=== PATIENT | male | born 1955 | race Caucasian/White ===

== ENCOUNTER → 2021-11-28 11:33 | Outpatient (BNVA) | payer OTHER, SELFPAY | PROVIDERS: Visit Provider Urology | DX: N40.0 Benign prostatic hyperplasia without lower urinary tract symptoms (principal) ==

== ENCOUNTER → 2022-11-28 08:28 | Outpatient (BNVA) | payer OTHER, SELFPAY | PROVIDERS: PCP Internal Medicine; Visit Provider Urology | DX: R33.9 Retention of urine, unspecified (principal); N40.0 Benign prostatic hyperplasia without lower urinary tract symptoms | CPT/HCPCS: 51798 ==

== ENCOUNTER 2023-11-28 08:09 | Outpatient (AMB) | payer OTHER, SELFPAY ==
--- NOTE | 2023-11-28 08:26 | MHC.OFFVIS ---
Intake Intake Visit Reasons: 1Y PVR(Conf) Intake Note: Patient is Present for Follow Up Urology Medication: Terazosin, Finasteride Antibiotic Allergies: None Blood Thinners: None PVR: 0 Allergies No Known Allergies Allergy (Verified 11/28/23 08:33) Medication List - Last Reconciled 11/28/23 by Kunal Alarcon MD atorvastatin 80 mg PO DAILY azelastine intranasal betamethasone, augmented 0.05% topical finasteride 5 mg PO DAILY 90 days fluoxetine 20 mg PO DAILY meloxicam 7.5 mg PO DAILY omeprazole 20 mg PO DAILY terazosin 10 mg PO DAILY 90 days valsartan 160 mg PO DAILY valsartan 320 mg PO DAILY HPI HPI Comments History of Present Illness Details Ilir Greenwood is a very pleasant male. He is a patient of . He is seen in the office today for the following urologic conditions. - lower urinary tract symptoms Yearly review PVR low Monotherapy with finasteride retry Lower Urinary Tract Symptoms:? Current visit is for?further evaluation of, lower urinary tract symptoms, predominate obstructive symptoms ? Current treatment includes?medication, alpha kj Terazosin 10mg and finasteride 5 mg ? Prior treatments include?mid 1999' procedure, TUMT ? Prostate Symptom Score?Mild (0-8), Bother 3.? Symptoms include?incomplete emptying, weak stream, and are improving.? Results from testing include? uroflow was performed ?Yes 12/2014 ? with a voided volume of ?118 ? with a maximum flow rate (Q max) ?9.8 ? based on the [place] nomagram this represents the following percentile ?5 ? the following patterns were seen ?prolonged void time (> 20sec) ? renal/bladder us ?Yes ? date ?10/27/2018 ? PVR ?60 ? prostate size ?50 ? Prior Prostate Score?moderate.? PSA?04/02 1.1, 04/05 0.4.? Prostate volume?< 30 gm ? Testing at next visit will include?bladder scan.? [facility] Medical History Prostatism Vitamin D deficiency Anxiety Depression HTN (hypertension) Hyperlipidemia GERD (gastroesophageal reflux disease) Left inguinal hernia Penile hypospadias BPH (benign prostatic hyperplasia) Incomplete emptying of bladder Weak urinary stream Surgical History History of surgery Social History Patient Tobacco Use Status: Former Tobacco user Review of Systems Const Denies chills and Denies fever(s) Card Reports no additional complaints and Denies syncope Resp Denies cough GI Denies abdominal pain and Denies heartburn Reports as per HPI and Denies change in libido Neuro Denies syncope Psych Denies change in libido Endo Denies change in libido Physical Exam Const General: cooperative, healthy appearing, comfortable and no acute distress Orientation/consciousness: patient oriented x3 HEENT Face and sinus: Yes normal facial exam Mouth: moist mucous membranes Neck Neck: Yes normal visual inspection, Yes full ROM and Yes trachea midline Chest Chest palpation & inspection: normal inspection of the chest Resp Effort & Inspection: normal respiratory effort, able to speak in complete sentences and no respiratory distress GI Inspection: Yes normal to inspection Back/Spine/Pelvis Cervical Spine: normal cervical lordosis Thoracic/Lumbar Spine: thoracic and lumbar spine normal to inspection Skin General skin exam: no rashes or lesions noted Neuro General: patient oriented x3, gait normal, tone normal and moves all extremities Extrem General: Yes normal to inspection and Yes capillary refill normal Office Procedures Post Void Residual Post Residual Void Post Void Residual (PVR): 0 [id number] Void Residual by ultrasound Assessment & Plan Assessment & Plan (1) BPH (benign prostatic hyperplasia): Code(s): N40.0 - Benign prostatic hyperplasia without lower urinary tract symptoms (2) Weak urinary stream: Code(s): R39.12 - Poor urinary stream (3) Incomplete emptying of bladder: Code(s): R33.9 - Retention of urine, unspecified Plan Twelve month follow-up Orders: Orders AMB Post Void Residual by ultrasound Today R33.9 - Retention of urine, unspecified Prostate Specific Antigen 364 Days R39.12 - Poor urinary stream Patient Instructions: Imaging studies, laboratory and physical exam results were discussed and reviewed in detail. No major barriers to patient understanding were identified. An opportunity to ask questions regarding the treatment plan was provided. All questions were answered. The patient expressed understanding and agreement with the above treatment plan. The patient is aware they should contact our office by phone for worsening of their current condition or the appearance of new urologic symptoms. Compliance is encouraged with any medications and followup testing that is ordered. It is a privilege to participate in the urologic care of your patient. If you have any questions or concerns regarding treatment for the above conditions, or other urologic issues, please do not hesitate to contact me. The office telephone contact is [phone]. This note is constructed using voice recognition software. While every effort has been made to ensure accuracy database reporting consultant errors may have been included. Yours sincerely, Dr Kunal Alarcon MD, [facility] - Urology Providers of Expert, Compassionate Care for the Genitourinary System Coding Level of Care Code Est Pt Level 4 (05259) Diagnoses BPH (benign prostatic hyperplasia) N40.0 Weak urinary stream R39.12 Incomplete emptying of bladder R33.9 CPT Codes Post Residual Void - PVR CPT Code: 19407-[id number] Void Residual by ultrasound ([id number])
== END 2023-11-28 09:08 | disposition home or self-care (01) ==
PROVIDERS: Visit Provider Urology
DX: N40.0 Benign prostatic hyperplasia without lower urinary tract symptoms (principal); R39.12 Poor urinary stream; R33.9 Retention of urine, unspecified
CPT/HCPCS: 99213

== ENCOUNTER → 2023-11-28 08:09 | Outpatient (BNVA) | payer OTHER, SELFPAY | PROVIDERS: Visit Provider Urology | DX: N40.1 Benign prostatic hyperplasia with lower urinary tract symptoms (principal); R39.12 Poor urinary stream; R33.8 Other retention of urine | CPT/HCPCS: 51798 ==

== ENCOUNTER 2024-11-24 09:09 | Outpatient (REF) | payer OTHER, SELFPAY ==
[2024-11-24 10:50] LABS: Prostate Specific Antigen 1.89 ng/mL (<0.05-4.0)
== END 2024-11-24 09:10 | disposition home or self-care (01) ==
LOC: HO.HMGCLDS 09:09
PROVIDERS: PCP Internal Medicine; Visit Provider Urology
DX: R39.12 Poor urinary stream (principal); Z12.5 Encounter for screening for malignant neoplasm of prostate
CPT/HCPCS: 36415; 84153

== ENCOUNTER 2024-11-30 08:12 | Outpatient (AMB) | payer OTHER, SELFPAY ==
--- NOTE | 2024-11-30 08:28 | MHC.OFFVIS ---
Intake Visit Reasons: 1Y PSA/PVR(set) Intake Note: Patient is Present for 1y Follow Up psa/pvr Urology Medication: Terazosin, Finasteride Antibiotic Allergies: None Blood Thinners: None PVR: 0ml's Stranner Required: No Allergies No Known Allergies Allergy (Verified 11/30/24 08:31) HPI Comments Details: Ilir Greenwood is a very pleasant male. He is a patient of Dr Bedolla. He is seen in the office today for the following urologic conditions. - lower urinary tract symptoms Yearly follow-up PSA 1.9 PVR 0 Remains on finasteride Tried coming off terazosin but remained Mild weakness of stream in the morning but otherwise okay Lower Urinary Tract Symptoms:? Current visit is for?further evaluation of, lower urinary tract symptoms, predominate obstructive symptoms ? Current treatment includes?medication, alpha kj Terazosin 10mg and finasteride 5 mg ? Prior treatments include?mid 1999' procedure, TUMT ? Prostate Symptom Score?Mild (0-8), Bother 3.? Symptoms include?incomplete emptying, weak stream, and are improving.? Results from testing include? uroflow was performed ?Yes 12/2014 ? with a voided volume of ?118 ? with a maximum flow rate (Q max) ?9.8 ? based on the [place] nomagram this represents the following percentile ?5 ? the following patterns were seen ?prolonged void time (> 20sec) ? renal/bladder us ?Yes ? date ?10/27/2018 ? PVR ?60 ? prostate size ?50 ? Prior Prostate Score?moderate.? PSA?04/02 1.1, 04/05 0.4, 12/11 1.9 ? Prostate volume?< 30 gm ? Testing at next visit will include?bladder scan.? [facility] Medical History Prostatism Vitamin D deficiency Anxiety Depression HTN (hypertension) Hyperlipidemia GERD (gastroesophageal reflux disease) Left inguinal hernia Penile hypospadias BPH (benign prostatic hyperplasia) Incomplete emptying of bladder Weak urinary stream Surgical History History of surgery Social History Patient Tobacco Use Status: Former Tobacco user Review of Systems Const Denies chills and Denies fever(s) Card Reports no additional complaints and Denies syncope Resp Denies cough GI Denies abdominal pain and Denies heartburn Reports as per HPI and Denies change in libido Neuro Denies syncope Psych Denies change in libido Endo Denies change in libido Physical Exam Const General: cooperative, healthy appearing, comfortable and no acute distress Orientation/consciousness: patient oriented x3 HEENT Face and sinus: Yes normal facial exam Mouth: moist mucous membranes Neck Neck: Yes normal visual inspection, Yes full ROM and Yes trachea midline Chest Chest palpation & inspection: normal inspection of the chest Resp Effort & Inspection: normal respiratory effort, able to speak in complete sentences and no respiratory distress GI Inspection: Yes normal to inspection Back/Spine/Pelvis Cervical Spine: normal cervical lordosis Thoracic/Lumbar Spine: thoracic and lumbar spine normal to inspection Skin General skin exam: no rashes or lesions noted Neuro General: patient oriented x3, gait normal, tone normal and moves all extremities Extrem General: Yes normal to inspection and Yes capillary refill normal Assessment & Plan Assessment & Plan (1) Incomplete emptying of bladder: Code(s): R33.9 - Retention of urine, unspecified Category: Medical (2) BPH (benign prostatic hyperplasia): Code(s): N40.0 - Benign prostatic hyperplasia without lower urinary tract symptoms Category: Medical Plan 12 month follow-up PSA and PVR Patient Instructions: Imaging studies, laboratory and physical exam results were discussed and reviewed in detail. No major barriers to patient understanding were identified. An opportunity to ask questions regarding the treatment plan was provided. All questions were answered. The patient expressed understanding and agreement with the above treatment plan. The patient is aware they should contact our office by phone for worsening of their current condition or the appearance of new urologic symptoms. Compliance is encouraged with any medications and followup testing that is ordered. It is a privilege to participate in the urologic care of your patient. If you have any questions or concerns regarding treatment for the above conditions, or other urologic issues, please do not hesitate to contact me. The office telephone contact is [phone]. This note is constructed using voice recognition software. While every effort has been made to ensure accuracy quality assurance monitor chassis errors may have been included. Yours sincerely, Dr Kunal Alarcon MD, [facility] - Urology Providers of Expert, Compassionate Care for the Genitourinary System Coding Level of Care Code Est Pt Level 4 (59872) Diagnoses Incomplete emptying of bladder R33.9 BPH (benign prostatic hyperplasia) N40.0
== END 2024-11-30 08:58 | disposition home or self-care (01) ==
PROVIDERS: PCP Internal Medicine; Visit Provider Urology
DX: R33.9 Retention of urine, unspecified (principal); N40.0 Benign prostatic hyperplasia without lower urinary tract symptoms
CPT/HCPCS: 99214

== ENCOUNTER → 2024-11-30 08:12 | Outpatient (BNVA) | payer OTHER, SELFPAY | PROVIDERS: PCP Internal Medicine; Visit Provider Urology ==

== ENCOUNTER 2025-06-09 11:53 | Emergency (ER) | payer OTHER, SELFPAY ==
--- NOTE | ~2025-06-09 | XR_ITS ---
EXAMINATION: XR RIBS 3 VIEWS MINIMUM WITH CHEST RIGHT HISTORY: right sided rib pain s/p fall COMPARISON: There are no prior studies available for comparison. FINDINGS: A single PA view of the chest and 6 views of the right ribs are submitted. The lungs are expanded and clear. There is no pleural effusion, pneumothorax, or pulmonary vascular congestion. The heart is normal in size. The right ribs are intact. No fracture is seen. A screw is seen in the right glenoid. XR/XR ribs RT min 3V w CXR1V IMPRESSION: No evidence of fracture of the right ribs. Electronically signed by: Jason Patterson MD 06/09/2025 12:45 PM EDT
--- NOTE | ~2025-06-09 | CT_ITS ---
EXAMINATION: CT CERVICAL SPINE WITHOUT CONTRAST CLINICAL INFORMATION: Trauma, pain after falling COMPARISON: None available. TECHNIQUE: Axial imaging was performed from the base of the skull through T2 without IV contrast. Coronal and sagittal reformatted images were generated from the original axial data set. ALARA: The examination used one or more of the following radiation dose reduction techniques: Automated exposure control, iterative reconstruction, and/or adjustment of mA and/or KV. DLP: 602 mGY*cm FINDINGS: There are severe degenerative changes of both temporomandibular joints, greater on the left. There is no prevertebral soft tissue swelling. There is mild reversal cervical lordosis. Degenerative disc changes are most advanced at C4-5 and C5-6 where there is moderate to severe disc space narrowing with bridging and nonbridging endplate osteophytes. Facet arthropathy is most advanced on the left C2-3 and C3-4 where there is joint space, sclerosis, and degenerative cystic change with marginal osteophytes. No fracture line is identified. CT/CT cervical spine wo IV con IMPRESSION: No acute abnormality. Multilevel degenerative disc disease and facet arthropathy with reversal cervical lordosis. Electronically signed by: Td Chacon MD 06/09/2025 01:28 PM EDT
--- NOTE | ~2025-06-09 | XR_ITS ---
EXAMINATION: XR HAND, LEFT CLINICAL INFORMATION: trauma COMPARISON: None available. TECHNIQUE: PA, lateral, and oblique views of the left hand. FINDINGS: No fracture, dislocation, or suspicious bone lesion. No malalignment. Joint spaces appear preserved. Carpal bones intact and normally aligned. Soft tissues appear normal. XR/XR hand LT min 3V IMPRESSION: No acute bony abnormalities left hand. Electronically signed by: Vinicio Cortes MD 06/09/2025 12:45 PM EDT
--- NOTE | ~2025-06-09 | CT_ITS ---
EXAMINATION: CT HEAD WITHOUT CONTRAST CLINICAL INFORMATION: Fall with head strike. COMPARISON: None available. TECHNIQUE: Contiguous axial imaging was performed from the skull base to vertex without intravenous administration of contrast. This CT examination was performed using dose optimization techniques as appropriate, variously including the following: *Automated exposure control *Adjustment of mA and/or kV according to patient size (this includes techniques or standardized protocols for targeted exams where dose is matched to indication/reason for exam; i.e. extremities or head) *Use of iterative reconstruction technique FINDINGS: There is no evidence of intracranial hemorrhage or extra-axial fluid collection. There is no mass effect, or edema. No CT evidence of acute territorial infarct. Ventricles, sulci, and cisterns are normal in size and configuration for patient age. No hydrocephalus. No midline shift. Negative hyperdense MCA sign. Negative insular ribbon sign. Patchy periventricular and deep white matter hypoattenuation is consistent with mild small vessel ischemic changes. 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 Globes and orbital contents image normally. No extracranial soft tissue abnormalities. The paranasal sinuses, mastoid air cells, and tympanic cavities are normally aerated. No suspicious bony abnormalities. There are no acute fractures evident. End-stage degenerative arthrosis bilateral TM joints. CT/CT head/brain wo IV con IMPRESSION: 1. No acute intracranial abnormality. 2. Chronic abnormalities as described. Electronically signed by: Vinicio Cortes MD 06/09/2025 01:32 PM EDT
[2025-06-09 11:58] VITALS: BP 117/68; PULSE 75; RESP 18; TEMP 36.2; O2SAT 97; BMI 32.2
--- NOTE | 2025-06-09 11:59 | ED.FALL ---
HPI - Fall General Chief Complaint: Fall Stated Complaint: fell head and chest inj at work Time Seen by Provider: 06/09/25 12:09 Source: patient, RN notes reviewed and old records reviewed Mode of arrival: ambulatory Limitations: no limitations History of Present Illness ED Provider: Ramírez DEXTER Narrative: 69-year-old male presents for evaluation after a fall. The patient reports that he was standing in a pickup truck, trying to get out of the bed. He reports that he got 1 leg over the rail and then his other foot got stuck He fell approximately 4 ft to the ground. He landed on his right side and struck the right side of his head in the temporal region He denies losing consciousness. Denies any neck pain pain He complains of a mild right-sided headache, left hand pain and right-sided chest pain He is not anticoagulated Related Data Home Medications ?Medication ?Instructions ?Recorded ?Confirmed atorvastatin 80 mg tablet 80 mg PO DAILY 11/28/21 11/28/23 azelastine 137 mcg (0.1 %) nasal intranasal 11/28/21 11/28/23 spray betamethasone, augmented 0.05 % topical 11/28/21 11/28/23 topical gel fluoxetine 20 mg capsule 20 mg PO DAILY 11/28/21 11/28/23 meloxicam 7.5 mg tablet 7.5 mg PO DAILY 11/28/21 11/28/23 omeprazole 20 mg capsule,delayed 20 mg PO DAILY 11/28/21 11/28/23 release valsartan 160 mg tablet 160 mg PO DAILY 11/28/21 11/28/23 valsartan 320 mg tablet 320 mg PO DAILY 11/28/21 11/28/23 Previous Rx's ?Medication ?Instructions ?Recorded finasteride 5 mg tablet 5 mg PO DAILY 90 days #90 tabs 11/23/24 terazosin 10 mg capsule 10 mg PO DAILY 90 days #90 caps 11/30/24 Allergies Allergy/AdvReac Type Severity Reaction Status Date / Time No Known Allergies Allergy Verified 06/09/25 12:02 Review of Systems Constitutional: Constitutional: Denies body ache(s), Denies chills, Denies fever(s), Denies frequent falls and Reports headache(s) Eyes: Eyes: Denies blind spots and Denies blurry vision ENT: Denies dizziness, Denies dry mouth and Reports headache(s) Cardiovascular: Cardiovascular: Reports chest pain (right chest wall pain) and Denies dyspnea on exertion Respiratory: Respiratory: Denies cough and Denies dyspnea on exertion Gastrointestinal: Gastrointestinal: Denies abdominal pain, Denies nausea and Denies vomiting Musculoskeletal: Musculoskeletal: Denies back pain, Denies arthralgias and Denies joint swelling Neurologic: Denies dizziness, Denies frequent falls and Reports headache(s) [facility] Past Medical History Medical History Prostatism Vitamin D deficiency Anxiety Depression HTN (hypertension) Hyperlipidemia GERD (gastroesophageal reflux disease) Left inguinal hernia Penile hypospadias BPH (benign prostatic hyperplasia) Incomplete emptying of bladder Weak urinary stream Surgical History History of surgery Social History Social History Patient Tobacco Use Status: Former Tobacco user Smoked in Last 30 Days: No Substance Use Type: Marijuana Advance Directives: No Advance Directives Information Provided: Yes Do you have a plan to hurt others: No Plan Physical Exam Vital Signs: Vital Signs: Last Vital Signs Temp 97.1 F 06/09/25 11:58 Pulse 75 06/09/25 11:58 Resp 18 06/09/25 11:58 BP 117/68 06/09/25 11:58 Pulse Ox 97 06/09/25 11:58 BMI result Body Mass Index 32.2 Const: General: healthy appearing, comfortable, no acute distress, alert and awake Nutritional Appearance: well nourished Orientation/consciousness: patient oriented x3 HEENT: Other: There was a large abrasion with petechiae to the right temporal region. No deep wounds or lacerations. No step-offs or deformities over the right orbit, zygomatic arch. Head: Yes No palpable skull fracture present Throat: Yes posterior oropharynx normal Eyes: Eyelids: Yes eyelids normal Conjunctivae: conjunctivae normal Sclerae: sclerae normal Corneas: corneas normal Pupils: Equal, round and reactive pupils present EOM: EOMs intact bilaterally Neck: Neck: Yes full ROM Chest: Chest palpation & inspection: normal inspection of the chest and no crepitus Resp: Effort & Inspection: normal respiratory effort, able to speak in complete sentences and not labored Back/Spine/Pelvis: Other: No C-spine tenderness Skin: General skin exam: elasticity normal Neuro: General: patient oriented x3 Cranial nerves: Yes CN's II-XII intact bilaterally, Yes Equal, round and reactive pupils present and Yes Bilaterally intact EOM present Cognition (Neuro): normal cognition Extrem: Other: Abrasion to the ventral surface of the left wrist. There is no deep wounds or lacerations. Full range of motion with flexion-extension of the wrists bilaterally and all fingers of the hands bilaterally Course Course Course Narrative: This is an RME: Additional HPI, ROS, PE not included below will be deferred to primary provider. RME assessment and note performed by: Kimberly Longo PA-C This is a 36-euad-aol-male, with a hx of HTN, HLD, BPH, GERD, who presents to the ER for evaluation of fall. Reporting he accidentally tripped and fell off of a truck bed, landing onto his right side. No LOC. States that he got the wind knocked out of him . He is not on AC. No midline c spine ttp. Plan: CT head/neck, xr ribs Medical Decision Making Medical Decision Making MDM Narrative: 69-year-old male presents for evaluation after a fall. He tripped while attempting to get out of his pickup truck. He did strike his head, plan for CT scan of the brain and cervical spine. I have a very low suspicion for facial fracture and therefore a facial bone CT was not ordered. X-ray of the chest and right ribs was also ordered. I also ordered an x-ray of the left hand. Differential Diagnosis Differential Diagnoses: The differential diagnosis associated with the presentation includes Facial contusion Intracranial hemorrhage Calvarial fracture Cervical strain Cervical fracture Finger fracture Independent Interpretation I performed an independent interpretation of an: CT Scan Interpretation: No obvious intracranial hemorrhage Radiology Impression Discussion of test interpretation with radiology: I have reviewed the radiologist's reading. Radiologist Impression: FINDINGS: There are severe degenerative changes of both temporomandibular joints, greater on the left. There is no prevertebral soft tissue swelling. There is mild reversal cervical lordosis. Degenerative disc changes are most advanced at C4-5 and C5-6 where there is moderate to severe disc space narrowing with bridging and nonbridging endplate osteophytes. Facet arthropathy is most advanced on the left C2-3 and C3-4 where there is joint space, sclerosis, and degenerative cystic change with marginal osteophytes. No fracture line is identified. CT/CT cervical spine wo IV con IMPRESSION: No acute abnormality. Multilevel degenerative disc disease and facet arthropathy with reversal cervical lordosis. Electronically signed by: Td Chacon MD 06/09/2025 01:28 PM EDT FINDINGS: There is no evidence of intracranial hemorrhage or extra-axial fluid collection. There is no mass effect, or edema. No CT evidence of acute territorial infarct. Ventricles, sulci, and cisterns are normal in size and configuration for patient age. No hydrocephalus. No midline shift. Negative hyperdense MCA sign. Negative insular ribbon sign. Patchy periventricular and deep white matter hypoattenuation is consistent with mild small vessel ischemic changes. 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 Globes and orbital contents image normally. No extracranial soft tissue abnormalities. The paranasal sinuses, mastoid air cells, and tympanic cavities are normally aerated. No suspicious bony abnormalities. There are no acute fractures evident. End-stage degenerative arthrosis bilateral TM joints. CT/CT head/brain wo IV con IMPRESSION: 1. No acute intracranial abnormality. 2. Chronic abnormalities as described. Electronically signed by: Vinicio Cortes MD 06/09/2025 01:32 PM EDT FINDINGS: No fracture, dislocation, or suspicious bone lesion. No malalignment. Joint spaces appear preserved. Carpal bones intact and normally aligned. Soft tissues appear normal. XR/XR hand LT min 3V IMPRESSION: No acute bony abnormalities left hand. Electronically signed by: Vinicio Cortes MD 06/09/2025 12:45 PM EDT FINDINGS: A single PA view of the chest and 6 views of the right ribs are submitted. The lungs are expanded and clear. There is no pleural effusion, pneumothorax, or pulmonary vascular congestion. The heart is normal in size. The right ribs are intact. No fracture is seen. A screw is seen in the right glenoid. XR/XR ribs RT min 3V w CXR1V IMPRESSION: No evidence of fracture of the right ribs. Electronically signed by: Jason Patterson MD 06/09/2025 12:45 PM EDT RP Tests considered The following testing was considered but not selected: Consider CT facial bones Prescription Management I considered prescription management with: Pain Medication (Patient declined analgesia) Discharge Plan Discharge Clinical Impression: Contusion of face Patient Disposition: Home, Self-Care Instructions: Facial Contusion (ED) Additional Instructions: You had a CT scan of your brain, cervical spine, x-rays of the right-sided ribs, chest and left hand. None of these images showed any significant traumatic injury. It is possible that you have a nondisplaced rib fracture that was not seen on x-ray. Use ibuprofen/Tylenol for pain Follow-up with your primary doctor, return for new or worsening symptoms Apply ice to the swollen areas Prescriptions: No Action finasteride 5 mg tablet 5 mg PO DAILY 90 Days Qty: 90 3RF terazosin 10 mg capsule 10 mg PO DAILY 90 Days Qty: 90 2RF atorvastatin 80 mg tablet 80 mg PO DAILY valsartan 320 mg tablet 320 mg PO DAILY meloxicam 7.5 mg tablet 7.5 mg PO DAILY azelastine 137 mcg (0.1 %) aerosol,spray intranasal betamethasone, augmented 0.05 % gel topical omeprazole 20 mg capsule,delayed release(DR/EC) 20 mg PO DAILY valsartan 160 mg tablet 160 mg PO DAILY fluoxetine 20 mg capsule 20 mg PO DAILY Stand Alone Forms: Work/School Release Print Language: Pakistani
--- NOTE | 2025-06-09 12:28 | PC.NURSE ---
Addendum entered by Selina Hernandez RN 06/09/25 12:28: Patient presents from home after attempting to climb over the back of his truck and foot getting caught, causing him to fall on his right side striking the right side of his head. Denies any LOC, or thinners. Alert and oriented. Some petechiae noted to right side of his forehead. Respirations even and non-labored. Abdomen large, distended, non-tender with positive bowel sounds. Radiological exams ordered. Original Note: Medical History Prostatism Vitamin D deficiency Anxiety Depression HTN (hypertension) Hyperlipidemia GERD (gastroesophageal reflux disease) Left inguinal hernia Penile hypospadias BPH (benign prostatic hyperplasia) Incomplete emptying of bladder Weak urinary strea
--- OUTSIDE RECORDS SUMMARY | 2025-06-09 13:00 | XMS_ITS | Clinical Summary ---
Author Organization [facility] Address [address] [place] [address] Phone Care Team Providers Care Planer Off Bearer Name Role Phone Duy Bedolla MD Primary Care Provider [phone] Allergies Active Allergy Reactions Criticality Noted Date Comments Other 03/15/2024 Seasonal Medications acetaminophen/d extromethorphan (ACETAMINOPHEN- DM ORAL) Take by mouth. Active meloxicam (MOBIC) 15 mg tablet Take 1 tablet (15 mg total) by mouth daily. Active atorvastatin (LIPITOR) 20 mg tablet Take 1 tablet (20 mg total) by mouth daily. Active finasteride (PROSCAR) 5 mg tablet Take 1 tablet (5 mg total) by mouth daily. Active FLUoxetine (PROzac) 20 mg capsule Take 1 capsule (20 mg total) by mouth daily. Active omeprazole (PriLOSEC) [address] capsule Take 1 capsule (20 mg total) by mouth daily. Active terazosin (HYTRIN) 10 mg capsule Take 1 capsule (10 mg total) by mouth every night at bedtime. Active valsartan (DIOVAN) 320 mg tablet Take 1 tablet (320 mg total) by mouth daily. 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) from Last 3 Months Immunizations Name Administration Dates Next Due Arteris SARS-CoV-2 COVID-19, mRNA, LNP-S, preservative free 02/17/2021,01/27/2021 Surgical History Surgery Date Site/Laterality Comments CHOLECYSTECTOMY PROCEDURE:CHOLECYSTECTOMY SHOULDER SURGERY PROCEDURE:SHOULDER SURGERY FEMUR SURGERY PROCEDURE:FEMUR SURGERY Family History Medical History Relation Name Comments Cancer Father Relation Name Status Comments Father Social History Tobacco Use Types Packs/Day Years Used Date Smoking Tobacco: Former Cigarettes Smokeless Tobacco: Never Tobacco Cessation:Counseling Given: Not Answered Alcohol Use Standard Drinks/Week Comments Not Currently 0 (1 standard drink = 0.6 oz pur e alcohol) Sex and Gender Information Value Date Recorded Sex Assigned at Not on file Legal Sex Male 4:54 PM EDT Gender Identity Not on file Sexual Orientation Not on file Obstetrics History Last Filed Vital Signs Vital Sign Reading Time Taken Comments Blood Pressure 146/60 04/07/2025 8:49 AM EDT Pulse 73 04/07/2025 8:49 AM EDT Temperature 36.6 C (97.9 F) 04/07/2025 8:49 AM EDT Respiratory Rate - - Oxygen Saturation 98% 04/07/2025 8:49 AM EDT Inhaled Oxygen Concentration - - Weight 97.5 kg (215 lb) 04/07/2025 8:49 AM EDT Height 174 cm (5' 8.5 ) 04/07/2025 8:49 AM EDT Body Mass Index 32.22 04/07/2025 8:49 AM EDT Plan of Treatment Upcoming Encounters Date Type Department Care Team (Late st Contact Info) Description 10/17/2025 9:00 AM EST Office Visit [facility] Hematology Oncology [address] [place] [id number] Cherie Biswas, DO [address] [place] [address] Health Maintenance Due Date Last Done Comments Pneumococcal Vaccine: 50+ Years (1 of 1 - PCV) 2004 Zoster Vaccines (2 of 2) 02/05/2024 12/11/2023 Abdominal Aortic Aneurysm (AAA) Screen 06/15/2024 Cholesterol Screening (Lipid Panel) 06/15/2024 Colorectal Cancer Screening: Colonoscopy 06/15/2024 Falls Risk Assessment 06/15/2024 Hepatitis C Screening 06/15/2024 Social Influencers of Health Screening 06/15/2024 Depression Screening 11/17/2024 COVID-19 Vaccine ( season) 2025 07/30/2024, 08/20/2023, 08/14/2022, Additional history exists Influenza Vaccine (#1) 2025 , 08/20/2023, 08/14/2022, Additional history exists RSV Immunization Adult Patients (1 - 1-dose 75+ series) 2029 DTaP,Tdap,and Td Vaccines (3 - Td or Tdap) 05/01/2034 05/01/2024, 06/22/2019 HIB Vaccines Aged Out No longer eligi ble based on patient's age to complete this topic HPV Vaccines Aged Out No longer eligi ble based on patient's age to complete this topic Hepatitis A Vaccines Aged Out No long er eligible based on patient's age to complete this topic Hepatitis B Vaccines Aged Out No long er eligible based on patient's age to complete this topic IPV Vaccines Aged Out No longer eligi ble based on patient's age to complete this topic MMR Vaccines Aged Out No longer eligi ble based on patient's age to complete this topic Meningococcal ACWY Vaccine Aged Out N o longer eligible based on patient's age to complete this topic Meningococcal B Vaccine Aged Out No l onger eligible based on patient's age to complete this topic RSV Immunization Patients Under 20 months Aged Out No longer eligible based on patient's age to complete this topic Varicella Vaccines Aged Out No longer eligible based on patient's age to complete this topic Procedures Procedure Name Priority Date/Time Associated Diagnosis Comments CBC WITH AUTO DIFFERENTIAL Routine 04/07/2025 9:29 AM EDT Hemochromatosis associated with compound heterozygous mutation in HFE gene (CMS/HCC V24) FERRITIN Routine 04/07/2025 9:29 AM EDT Hemochromatosis associated with compound heterozygous mutation in HFE gene (CMS/HCC V24) IRON AND TIBC Routine 04/07/2025 9:29 AM EDT Hemochromatosis associated with compound heterozygous mutation in HFE gene (CMS/HCC V24) CBC AND DIFFERENTIAL Routine 04/07/2025 9:29 AM EDT Hemochromatosis associated with compound heterozygous mutation in HFE gene (CMS/HCC V24) from Last 3 Months Results * (ABNORMAL) CBC auto differential (04/07/2025 9:29 AM EDT) WBC 5.8 4.8 - 10.8 K/mcL LAB HEMETOLOGY METHOD 04/07/2025 1:38 PM [facility] RBC 4.10(L) 4.50 - 5.50 M/mcL LAB HEMETOLOGY METHOD 04/07/2025 1:38 PM [facility] Hemoglobin 14.0 13.5 - 17.5 g/dL LAB HEMETOLOGY METHOD 04/07/2025 1:38 PM [facility] Hematocrit 39.8(L) 42.0 - 54.0 % LAB HEMETOLOGY METHOD 04/07/2025 1:38 PM [facility] MCV 96.6 79.0 - 98.0 FL LAB HEMETOLOGY METHOD 04/07/2025 1:38 PM [facility] MCH 34.0(H) 27.0 - 32.0 pcg LAB HEMETOLOGY METHOD 04/07/2025 1:38 PM [facility] MCHC 35.2 32.0 - 37.0 g/dL LAB HEMETOLOGY METHOD 04/07/2025 1:38 PM [facility] RDW 13.3 11.0 - 15.0 % LAB HEMETOLOGY METHOD 04/07/2025 1:38 PM [facility] Platelets 151 130 - 400 K/mcL LAB HEMETOLOGY METHOD 04/07/2025 1:38 PM [facility] MPV 10.0 7.0 - 11.0 FL LAB HEMETOLOGY METHOD 04/07/2025 1:38 PM EDT [facility] NRBC 0.0 <1.0 % LAB HEMETOLOGY METHOD 04/07/2025 1:38 PM [facility] NRBC Absolute 0.00 <0.10 K/mcL LAB HEMETOLOGY METHOD 04/07/2025 1:38 PM [facility] Neutrophils Relative 61.4 % LAB HEMETOLOGY METHOD 04/07/2025 1:38 PM [facility] Lymphocytes Relative 23.5 % LAB HEMETOLOGY METHOD 04/07/2025 1:38 PM [facility] Monocytes Relative 9.1 % LAB HEMETOLOGY METHOD 04/07/2025 1:38 PM [facility] Eosinophils Relative 5.0 % LAB HEMETOLOGY METHOD 04/07/2025 1:38 PM [facility] Basophils Relative 0.3 % LAB HEMETOLOGY METHOD 04/07/2025 1:38 PM [facility] Immature Granulocytes Relative 0.7 % LAB HEMETOLOGY METHOD 04/07/2025 1:38 PM [facility] Neutrophils Absolute 3.59 1.50 - 7.00 K/mcL LAB HEMETOLOGY METHOD 04/07/2025 1:38 PM [facility] Lymphocytes Absolute 1.37 1.00 - 5.00 K/mcL LAB HEMETOLOGY METHOD 04/07/2025 1:38 PM [facility] Monocytes Absolute 0.53 0.20 - 1.00 K/mcL LAB HEMETOLOGY METHOD 04/07/2025 1:38 PM [facility] Eosinophils Absolute 0.29 0.00 - 0.50 K/mcL LAB HEMETOLOGY METHOD 04/07/2025 1:38 PM [facility] Basophils Absolute 0.02 0.00 - 0.20 K/[facility] LAB HEMETOLOGY METHOD 04/07/2025 1:38 PM EDT [facility] Immature Granulocytes Absolute 0.04(H) 0.00 - 0.03 K/[facility] LAB HEMETOLOGY METHOD 04/07/2025 1:38 PM EDT [facility] Blood Venous blood specimen / Unknown Venipuncture / Unknown 04/07/2025 9:29 AM EDT 04/07/2025 1:00 PM EDT Cherie Biswas DO LAB BLOOD ORDERABLES Final Result [facility] [address] [place] [address], [place] [phone] * (ABNORMAL) Iron and TIBC (04/07/2025 9:29 AM EDT) Iron 69 50 - 160 mcg/dL LAB CHEMISTRY METHOD 04/07/2025 2:45 PM EDT [facility] TIBC 241(L) 250 - 450 mcg/dL LAB CHEMISTRY METHOD 04/07/2025 2:45 PM EDT [facility] Iron Saturation 29 20 - 50 % LAB CHEMISTRY METHOD 04/07/2025 2:45 PM EDT [facility] Blood Venous blood specimen / Unknown Venipuncture / Unknown 04/07/2025 9:29 AM EDT 04/07/2025 12:59 PM EDT Cherie Biswas DO LAB BLOOD ORDERABLES Final Result [facility] [address] [place] [address], [place] [phone] * Ferritin (04/07/2025 9:29 AM EDT) Ferritin 108 26 - 388 ng/mL LAB CHEMISTRY METHOD 04/07/2025 2:45 PM EDT [facility] Blood Venous blood specimen / Unknown Venipuncture / Unknown 04/07/2025 9:29 AM EDT 04/07/2025 12:59 PM EDT us Cherie Maloneuliffe DO LAB BLOOD ORDERABLES Final Result [facility] [address] [place] [address], from Last 3 Months Insurance MEDICARE [facility] Care Teams Planer Off Bearer Relationship Specialty Start Date End Date Duy Bedolla MD [address] [place] [address] PCP - General 02/04/24
--- OUTSIDE RECORDS SUMMARY | 2025-06-09 13:00 | XMS_ITS | Data Portability ---
Author Organization [place] - [facility], Allergy Address [address] [place] [id number] Care Team Providers Care Graduate Studies Dean Name Role Phone ROSALINA CORONEL Primary Care Provider Assessment Encounter Date Assessment Date Assessment LastModified by Organization Details LastModified Time 05/18/2025 05/18/2025 1. Deviated Nasa l Septum The patient has a previous history of deviated septum surgery. Evaluation focused on current nasal contour and airflow efficiency. 2. Allergic Rhinitis The patient reports chronic use of Claritin for symptom management. Future exploration into additional nasal treatments considered as patient reports ongoing nasal drip and congestion. 3. Chronic Rhinosinusitis Suggest imaging with a CAT scan to confirm sinus condition and rule out chronic sinus infection or inflammation as an cause for symptoms. No significant sinus disease. Consider trial of Sinus Structural Drafter or Sinus Buster 4. Obstructive Sleep Apnea The patient adheres well to CPAP therapy, though further assessment of CPAP settings at a sleep lab may be necessary due to continuing snoring issues. Procedure Documentation: - Examination of the nasal and oropharyngeal area with attention to potential structural or inflammatory changes. [email or web address] Not available 05/18/2025 10:39:26 Plan of Treatment Reminders Order Date Submit Date Provider Last Modified By Organization Details Last Modified Time Details Appointments None recorded . Lab None recorded . Referral None recorded . Procedures None recorded . Surgeries None recorded . Imaging CT, sinuses, w/o contrast 2024 [facility], [address] [place] [address], [place], [address], 10:59:31 Medication Orders None recorded . Patient TargetsNo targets recorded. Patient Instructions Encounter Date Encounter Id Patient Instructions Last Modified By Organization Details Last Modified Time 05/18/2025 [id number] Please note: Parts of this encounter note have been generated by AI based on audio conversation. Patient consent was required prior to utilizing this technology. Content review was required prior to finalizing the note. colton Not available 05/18/2025 10:05:19 Reason for Referral None Reported. Results Created Date Observation Date Name Description Value Unit Range Abnormal Flag Note LastModifiedBy Organization Detail LastModifiedTime 05/18/[address], sinus es, w/o contr ast No observ ation record ed. colton [facility] Of [address], [id number], 05/18/2025 10:40:20 05/18/20 25 audio gram No observ ation record ed. BARCODE Not Available 2024 17:06:39 05/31/20 25 05/18/2025 CT, sinus es, w/o contr ast No observ ation record ed. [facility] [address], [address], 06/08/2025 14:24:39 Result Notes None recorded. Problems Name Problem SNOMED Code Status Onset Date Resolution Date Notes Provider Name and Address Organization Details Recorded Time Pain of temporoma ndibular joint 05691476 Active 2015 Arthralgi a of temporoma ndibular joint; Note: Date Diagnosed : 11/28/2015 5:15 PM (M26.62) Not Available [facility] 4 02:15:27 Otalgia of right ear 8831836155 Active 2015 Otalgia, right ear; Note: Date Diagnosed : 11/28/2015 4:25 PM (H92.01) Not Available [facility] 4 02:16:11 Obesity 347658008 Active 2015 Other obesity; Note: Date Diagnosed : 02/14/2016 4:12 PM (E66.8) Not Available [facility] 4 02:14:09 Acute upper respirato ry infection 57138612 Active 2015 Acute upper respirato ry infection , unspecifi ed; Note: Date Diagnosed : 6 3:28 PM (J06.9) Not Available [facility] 4 02:14:57 Obstructi ve sleep apnea syndrome 64409164 Active 2016 LANDRY; Note: Date Diagnosed : 07/26/2015 3:10 PM (327.23) ; Start Date : 5 Obstruc tive sleep apnea (adult) (pediatri c); Note: Date Diagnosed : 02/26/2017 9:10 AM (G47.33) SVEN HILL MD [address] [place] [address], [facility], [place], [address] , [facility] 5 10:00:17 Sensorine ural hearing loss of bilateral ears 383864083 Active 2017 Sensorine ural hearing loss, bilateral ; Note: Date Diagnosed : 04/20/2018 3:18 PM (H90.3) Not Available [facility] 4 02:13:00 Allergic rhinitis 91698894 Active 2017 Allergic rhinitis: Due to other allergen; Note: Date Diagnosed : 08/13/2018 4:35 PM (477.8) Allergi c rhinitis: Due to other allergen; Note: Date Diagnosed : 4 4:29 PM (477.8) ; Start Date : 4 Allergi c rhinitis: Due to other allergen; Note: Date Diagnosed : 08/25/2014 4:29 PM (477.8) ; Start Date : 4 Allergi c rhinitis: Due to other allergen; Note: Date Diagnosed : 08/18/2014 4:33 PM (477.8) ; Start Date : 4 Other allergic rhinitis; Note: Date Diagnosed : 02/14/2016 4:06 PM (J30.89) ; Start Date : 6 Jessicanni al allergic rhinitis; Note: Date Diagnosed : 05/25/2015 3:51 PM (J30.89) [mapped from ICD9 code: 477.8] ; Start Date : 5 Not Available [facility] 4 02:15:41 Chronic rhinitis 71056833 Active 2017 Chronic rhinitis; Note: Date Diagnosed : 10/19/2018 4:20 PM (J31.0) SVEN HILL MD [address] [facility] [address], [place], [address] , [facility] - [facility] 5 09:59:48 Abnormal auditory perceptio n 91659024 Active 2024 PARISA DAVIS, AUD [address] [facility],[place] [address], [place], [address] , [facility] 5 09:46:48 Problem Notes None recorded. Procedures Surgical History Date Name Laterality Status Provider Name and Address Organization Details Recorded Time 05/18/20 25 Comp Audio with Tymps - 00273 & 34067 completed PARISA DAVIS [facility] [address] [facility],[place] [address], [place], [address], [facility] 05/18/2025 09:46:27 05/18/20 25 Fiberoptic Laryngoscopy (Comprehensive) completed SVEN MCINTYRE MD [address] [facility],[place] [address], [place], [address], [facility] 05/18/2025 10:05:17 Imaging Results None recorded. Procedure Notes None recorded. Medical Equipment None Reported. Medications Name Sig Start Date Stop Date Status Note LastModified by Organization Details LastModified Time Prescript ion - Prior Authoriza tion Request active Script Copy/Kati or Auth^Scr ipt Copy/Kati or Auth_202 [id number] Not Available Not Available Not Available amoxicill in 500 mg capsule TAKE 1 CAPSULE BY MOUTH THREE TIMES A DAY 05/18 completed Not Available Not Available Not Available terazosin 5 mg capsule 05/18 completed Medicati on ID: [id number] D uration Value: 90 Brand Name: terazosi n Send Method: E-Prescr ibed Sub s Allowed: subs OK Medic ationGen ericName : terazosi n Not Available Not Available Not Available clotrimaz ole 10 mg tushar 1 tushar in mouth 05/18 completed Medicati on ID: [id number] Du ration Value: 7 Prescri bed By Name: Vikram Kidd nd Name: jaylene zolgary Sen d Method: E-Prescr ibed Sub s Allowed: subs OK Medic ationGen ericName : clotrima zole Not Available Not Available Not Available atorvasta tin 80 mg tablet 2013 active Medicati on ID: [id number] Du ration Value: 90 Brand Name: atorvast atin Sen d Method: E-Prescr ibed Sub s Allowed: subs OK Medic ationGen ericName : atorvast atin Not Available Not Available Not Available ibuprofen 800 mg tablet 05/18 completed Medicati on ID: [id number] B rand Name: ibuprofe n Send Method: E-Prescr ibed Sub s Allowed: subs OK Medic ationGen ericName : ibuprofe n Not Available Not Available Not Available meloxicam 15 mg tablet TAKE 1 TABLET BY MOUTH EVERY DAY active Not Available Not Available No t Available prednison e 5 mg tablet 01/01 completed Medicati on ID: [id number] D uration Value: 14 Reason: () Brand Name: predniso ne Send Method: E-Prescr ibed Sub s Allowed: subs OK Medic ationGen ericName : predniso ne Not Available Not Available Not Available naproxen 250 mg tablet 09/25 completed Medicati on ID: [id number] R fatimah: () Brand Name: naproxen Send Method: E-Prescr ibed Sub s Allowed: subs OK Medic ationGen ericName : naproxen Not Available Not Available Not Available acetamino phen 300 mg-codein e 15 mg tablet TAKE 1 TABLET BY MOUTH EVERY 6 HOURS NEEDED 05/18 completed Not Available Not Available Not Available triamcino lone acetonide 0.1 % topical cream APPLY TWICE A DAY TO AFFECTED AREAS ON HANDS FOR 1-2 WEEKS AT A TIME.NOT ON FACE/BOD Y FOLDS. 05/18 completed Not Available Not Available Not Available oxycodone -acetamin ophen 5 mg-325 mg tablet TAKE 1 TABLET BY MOUTH EVERY 6 HOURS NEEDED 05/18 completed Not Available Not Available Not Available citalopra m 20 mg tablet 05/18 completed Medicati on ID: [id number] Du ration Value: 90 Brand Name: citalopr am Send Method: E-Prescr ibed Sub s Allowed: subs OK Medic ationGen ericName : citalopr am Not Available Not Available Not Available tamsulosi n 0.4 mg capsule 05/08 completed Medicati on ID: [id number] D uration Value: 14 Reason: () Brand Name: tamsulos in Send Method: E-Prescr ibed Sub s Allowed: subs OK Medic ationGen ericName : tamsulos in Not Available Not Available Not Available valsartan 320 mg tablet Take 1 tablet every day by oral route. active Not Available Not Available No t Available omeprazol e 20 mg capsule,d elayed release 2013 [place]ati [place] ID: [id number] Du ration Value: 90 Brand Name: omeprazo le Send Method: E-Prescr ibed Sub s Allowed: subs OK Medic ationGen ericName : omeprazo le Not Available Not Available Not Available Tylenol 325 mg tablet 01/01 completed Medicati on ID: [id number] R fatimah: () Brand Name: Tylenol Send Method: E-Prescr ibed Sub s Allowed: subs OK Medic ationGen ericName : Tylenol Not Available Not Available Not Available zinc 50 mg tablet 05/14 completed Medicati on ID: [id number] B rand Name: zinc Sen d Method: E-Prescr ibed Sub s Allowed: subs OK Medic ationGen ericName : zinc Not Available Not Available Not Available azelastin e 137 mcg (0.1 %) nasal spray Inhale 2 spray into both nostrils twice a day as directed 05/14 completed Medicati on ID: [id number] D uration Value: 90 Prescri bed By Name: Vikram Kidd nd Name: azelasti ne Send Method: E-Prescr ibed Sub s Allowed: subs OK Medic ationGen ericName : azelasti ne Not Available Not Available Not Available fluoxetin e 20 mg capsule TAKE 1 CAPSULE BY MOUTH EVERY EVENING active Not Available Not Available No t Available fluticaso ne propionat e 50 mcg/actua tion nasal spray,ryan pension 1 puff into both nostrils 05/14 completed Medicati on ID: [id number] D uration Value: 30 Prescri bed By Name: Sven velázquez M.D. Bra jeremy Name: fluticas one propiona te Send Method: E-Prescr ibed Sub s Allowed: subs OK Medic ationGen ericName : fluticas one propiona te Not Available Not Available Not Available terazosin 10 mg capsule TAKE 1 CAPSULE BY MOUTH EVERY DAY FOR 90 DAYS active Not Available Not Available No t Available ipratropi um bromide 21 mcg (0.03 %) nasal spray USE 2 INTRANAS L SPRAYS THREE TIMES A DAY DIRECTED active Not Available Not Available No t Available finasteri de 5 mg tablet Take 1 tablet every day by oral route. active Not Available Not Available No t Available Acidophil us capsule 05/14 completed Medicati on ID: [id number] B rand Name: Acidophi justice Send Method: E-Prescr ibed Sub s Allowed: subs OK Medic ationGen ericName : Acidophi justice Not Available Not Available Not Available Calcium-5 00 500 mg (as calcium carbonate 1,250 mg) tablet 2014 active Medicati on ID: [id number] Br and Name: Calcium 500 Send Method: E-Prescr ibed Sub s Allowed: subs OK Medic ationGen ericName : Calcium 500 Not Available Not Available Not Available Vitamin D3 25 mcg (1,000 unit) capsule 05/14 completed Medicati on ID: [id number] Br and Name: Vitamin D3 Send Method: E-Prescr ibed Sub s Allowed: subs OK Medic ationGen ericName : Vitamin D3 Not Available Not Available Not Available multivita min active Not Available Not Available Not Available Zyrtec 10 mg capsule 02/14 completed Medicati on ID: [id number] Br and Name: Zyrtec S end Method: E-Prescr ibed Sub s Allowed: subs OK Medic ationGen ericName : Zyrtec Not Available Not Available Not Available loratadin e 10 mg capsule Take by oral route. active Not Available Not Available No t Available EpiPen 2-Suleman 0.3 mg/0.3 mL injection , auto-inje ctor 1 pen injector intramus cularly 01/26 completed Medicati on ID: [id number] D uration Value: 1 Brand Name: EpiPen 2-Suleman Se nd Method: E-Prescr ibed Sub s Allowed: subs OK Medic ationGen ericName : EpiPen 2-Suleman Not Available Not Available Not Available turmeric root extract 500 mg tablet Take by oral route. active Not Available Not Available No t Available Vitals None Recorded Social History Question Answer Notes LastModified by Organizat ion Details LastModified Time Tobacco Smoking Status Former Smoker Francia garcía [place] - [facility] 05/18/2025 10:01:28 What Type Of Np Do You Use? None Information not available 05/18/2025 Do You Have Any Pets? Yes Information not available 05/18/2025 Are You Passively Exposed To Smoke? No Information not available 05/18/2025 Are There Any Smokers In Your House? No Information not available 05/18/2025 Sex: Unknown Functional Status Question Answer Note LastModified by Organizat ion Details LastModified Time What type of noise exposure are you exposed to? noExposureToExcessiveNoise Infor mation not available 05/18/2025 Mental Status None recorded. Family History Nothing Reported. Medical History Condition Response Allergies/Hayfever Y Hypertension Y High Cholesterol Y GERD/Reflux Y Past Encounters Encounter ID Performer Location Encounter Start Date Encounter Closed Date Diagnosis/Indication Diagnosis SNOMED-CT Code Diagnosis ICD10 Code Diagnosis Note [id number] SVEN HILL MD [facility] [address] [address] 05/18/2025 08:43:58 05/18/2025 10:59:31 Abnormal auditory perception [id number] H93.293 Audiologic al evaluation results: Right ear: Normal hearing with excellent word recognitio n. Left ear: Normal hearing with excellent word recognitio n. Tympanomet ry: Right Ear:Type A Left Ear:Type A Chronic rhinitis 1944003 6 J31.0 Consider trial of Sinus Joana or Sinus Buster Obstructiv e sleep apnea syndrome 52660286 G47.33 Finding re ported by subject or history provider [id number] R09.89 Health Concerns Section Related Observation LastModified by Organization Detai ls LastModified Time None Recorded Concern Status LastModified by Organization Details LastModified Time None Recorded Advance Directives Directive None Recorded Payers Insurance Date Sequence Insurance Name Policy Number Policy Osborn Covered Member ID Osborn Member ID Guarantor Name 05/18/[address] [place] [address] [id number] Ilir Greenwood [id number] Ilir Greenwood Notes Date Note Type Note Provider Name and Address Organization Details Recorded Time 05/18/2025 text/html The patient is a 69-year-old male presenting with chronic rhinosinusitis and obstructive sleep apnea. The patient has a previous surgical history of deviated nasal septum correction; however, symptoms of nasal blockage persist, characterized by postnasal drip and congestion. Long-term management involves daily use of Claritin. Past trials with different intermittent medications like Flonase and Astaline were not substantially successful. Notably, Zyrtec was discontinued due to adverse itching. Regarding sleep apnea, CPAP use is well-established, though further investigation is warranted due to snoring persistence, with possible considerations of weight contribution to symptomatology affirmed by moderate weight gain. Sleep clinic reports confirm CPAP function is reportedly adequate; however, updating CPAP settings may be expedient. SVEN MCINTYRE MD [address] [place] [address], [place], [address], [facility] - [facility] 05/18/2025 10:41:12
--- OUTSIDE RECORDS SUMMARY | 2025-06-09 13:00 | XMS_ITS | Clinical Summary ---
Author Organization [facility] Address [address] [place] [address] Care Team Providers Care Pest Control Worker Name Role Phone Duy Bedolla MD Primary Care Provider Allergies Active Allergy Reactions Criticality Noted Date Comments Seasonal 03/15/2024 Medications Medication Sig Dispensed Refills Start Date End Date Status omeprazole (PriLOSEC) 20 MG capsule Take 1 capsule (20 mg total) by mouth daily. 0 Active calcium carbonate (TUMS) 500 MG chewable tablet Chew 1 tablet (500 mg total) by mouth daily. 0 Active atorvastatin (LIPITOR) tablet 20 mg Take 1 tablet (20 mg total) by mouth daily. 0 Active finasteride (PROSCAR) 5 MG tablet Take 1 tablet (5 mg total) by mouth daily. 0 Active terazosin (HYTRIN) 10 MG capsule Take 1 capsule (10 mg total) by mouth every night at bedtime. 0 Active valsartan (DIOVAN) tablet 320 mg Take 1 tablet (320 mg total) by mouth daily. 0 Active meloxicam (MOBIC) 15 MG tablet Take 1 tablet (15 mg total) by mouth daily. 0 Active FLUoxetine (PROzac) 20 MG capsule Take 1 capsule (20 mg total) by mouth daily. 0 Active ACETAMINOPHEN-DM PO Take by mouth. 0 A ctive Active Problems No known active problems Family History Medical History Relation Name Comments Cancer Father Relation Name Status Comments Father Social History Tobacco Use Types Packs/Day Years Used Date Smoking Tobacco: Former Cigarettes 2 Smokeless Tobacco: Never Tobacco Cessation:Counseling Given: Not Answered Alcohol Use Standard Drinks/Week Comments Not Currently 0 (1 standard drink = 0.6 oz pur e alcohol) Sex and Gender Information Value Date Recorded Sex Assigned at Female 02/04/2024 8:40 AM EDT Gender Identity Not on file Sexual Orientation Not on file Job Start Date Occupation Industry Not on file Not on file Not on file Last Filed Vital Signs Vital Sign Reading Time Taken Comments Blood Pressure 136/63 04/07/2024 9:32 AM EDT Pulse 66 04/07/2024 9:32 AM EDT Temperature 36.7 C (98 F) 04/07/2024 9:32 AM EDT Respiratory Rate - - Oxygen Saturation 97% 04/07/2024 9:32 AM EDT Inhaled Oxygen Concentration - - Weight 96.2 kg (212 lb) 04/07/2024 9:32 AM EDT Height 174 cm (5' 8.5 ) 04/07/2024 9:32 AM EDT Body Mass Index 31.77 04/07/2024 9:32 AM EDT Plan of Treatment Health Maintenance Due Date Last Done Comments Hepatitis C Screening 1954 Depression Screening 1966 Preventative Health Evaluation 1972 DTap / Tdap / Td (1 - Tdap) 1973 Colon Cancer Screening (Colonoscopy) 1999 Breast Cancer Screening (Mammogram) 2004 Shingrix-Zoster Vaccine (1 o f 2) 2004 Fall Risk Assessment 2019 Osteoporosis Screening (DEXA Scan) 2019 Pneumococcal Vaccine (1 of 1 - PCV) 2019 COVID-19 Vaccine (3 - 2023-2 5 season) 2024 02/17/2021, 01/27/2021 Influenza Vaccine (#1) 2025 08/11/2009 RSV Adult > 60+ Yrs or (1 - 1-dose 75+ series) 2029 Hepatitis B Vaccines Aged Out No long er eligible based on patient's age to complete this topic RSV Ped < 20 months Aged Out No longe r eligible based on patient's age to complete this topic Care Teams Pest Control Worker Relationship Specialty Start Date End Date Duy Bedolla MD [address] [id number] PCP - General Bat Lathe Operator 02/04/24
[2025-06-09 13:58] VITALS: BP 117/68; PULSE 75; RESP 18; TEMP 36.2; O2SAT 97
== END 2025-06-09 13:59 | disposition home or self-care (01) ==
PROVIDERS: Emergency Provider Emergency Medicine; PCP Internal Medicine
DX: S00.83XA Contusion of other part of head, initial encounter (principal); S60.812A Abrasion of left wrist, initial encounter; M79.642 Pain in left hand; I10 Essential (primary) hypertension; V83.4XXA Person injured while boarding or alighting from special industrial vehicle, initial encounter; Y93.89 Activity, other specified; Y92.89 Other specified places as the place of occurrence of the external cause; Y99.8 Other external cause status; Z79.899 Other long term (current) drug therapy
CPT/HCPCS: 70450; 71101; 72125; 73130; 99284

== ENCOUNTER → 2025-06-09 12:03 | Outpatient (BNV) | payer OTHER, SELFPAY | PROVIDERS: PCP Internal Medicine; Visit Provider Radiology Diagnostic Radiology | DX: M50.021 Cervical disc disorder at C4-C5 level with myelopathy (principal); R90.82 White matter disease, unspecified; R07.89 Other chest pain; M79.642 Pain in left hand; W17.89XA Other fall from one level to another, initial encounter | CPT/HCPCS: 70450; 71101; 72125; 73130 ==